=== PATIENT | female | born 1995 | race Caucasian/White ===

== ENCOUNTER → 2024-02-27 | Day surgery (SDC) | payer MEDICAID ==
[~2024-02-27] VITALS: Ht 175.2 cm; Wt 72.6 kg
[~2024-02-27] MED LIST: ACETAMINOPHEN 100 ML IV ONE; Dexamethasone Sodium Phospha 4 MG/ML VIAL IV ONE; Esmolol Hydrochloride 100 MG/10 ML VIAL IV ONE; Ketamine Hydrochloride 500 MG/10 ML VIAL IV ONE; Ketorolac Tromethamine 30 MG/ML VIAL IV ONE; LEVOXYL150 MCG PO; Lactated Ringer's Solution 1,000 ML IV ONE; Lactated Ringer's Solution 1,000 ML IV SCH; Lidocaine Hydrochloride 5 ML VIAL IV ONE; MAGNESIUM SULFATE 1 GM/2 ML VIAL IV ONE; Midazolam Hydrochloride 2 MG/2 ML VIAL IV ONE; Ondansetron Hydrochloride 4 MG/2 ML VIAL IV ONE; ROCURONIUM BROMIDE 50 MG/5 ML SYRINGE IV ONE; SEVOFLURANE 250 ML BOT INH ONE; SUGAMMADEX SODIUM 200 MG/2 ML VIAL IV ONE; fentaNYL CITRATE 100 MCG/2 ML VIAL IV ONE
[2024-02-27 06:30] VITALS: BP 107/68
[2024-02-27 08:30] VITALS: BP 125/75
[2024-02-27 08:45] VITALS: BP 129/70
[2024-02-27 08:59] VITALS: BP 131/76
[2024-02-27 09:15] VITALS: BP 105/65
[2024-02-27 09:30] VITALS: BP 113/65
== END | disposition home or self-care (01) ==
LOC: SDC 02-23 08:45
PROVIDERS: ATTEND Obstetrics & Gynecology
DX: Z30.2 Encounter for sterilization (principal); E03.9 Hypothyroidism, unspecified; Z79.890 Hormone replacement therapy; Z98.890 Other specified postprocedural states